=== PATIENT | female | born 1940 | race Caucasian/White ===

== ENCOUNTER 2017-01-03 20:28 | Emergency (ER) | payer MEDICARE, BC ==
[2017-01-03] MEDS ORDERED: LANOXIN125 MC3 PO (20:36)
[2017-01-03] MEDS ORDERED: METOPROLOL TART25 M1 PO (20:37)
[2017-01-03] MEDS ORDERED: COUMADIN3 M1 PO (20:37)
[2017-01-03] MEDS ORDERED: PRINIVIL10 M1 PO (20:37)
[2017-01-03] MEDS ORDERED: PREDNISONE5 M1 PO (20:38)
[2017-01-03] MEDS ORDERED: ARTHRITIS MED (20:38)
[2017-01-03] MEDS ORDERED: CRESTOR10 M1 (20:38)
[2017-01-03] MEDS ORDERED: EYE DROP TEARS15 M1 OP (21:01)
[2017-01-03] MEDS ORDERED: NORVASC5 M2 PO (21:02)
[2017-01-03] MEDS ORDERED: TOPROL XL50 M1 PO (21:02)
[2017-01-03] MEDS ORDERED: PRINIVIL20 M1 PO (21:02)
[2017-01-03] MEDS ORDERED: CRESTOR5 M1 (21:02)
== END 2017-01-03 21:44 ==
LOC: EDMED 20:28
PROC: 0HQLXZZ Repair Left Lower Leg Skin, External Approach (ICD-10-PCS; principal; 2017-01-03)
DX: S81.812A Laceration without foreign body, left lower leg, initial encounter (principal); I48.91 Unspecified atrial fibrillation; E78.5 Hyperlipidemia, unspecified; Z79.01 Long term (current) use of anticoagulants; Z79.899 Other long term (current) drug therapy; W22.8XXA Striking against or struck by other objects, initial encounter; Y92.019 Unspecified place in single-family (private) house as the place of occurrence of the external cause